=== PATIENT | male | born 1960 | race Caucasian/White ===

== ENCOUNTER 2016-12-06 07:07 | Emergency (ER) | payer BC ==
[2016-12-06 07:18] VITALS: BP 148/96
--- NOTE | 2016-12-06 07:34 | ED Physician Documentation ---
PD HPI ABD PAIN - Stated complaint Stated Complaint: SIDE PX - Chief complaint Chief Complaint: Abd Pain - History obtained from History obtained from: Patient - History of Present Illness Timing - onset: How many days ago (2) Timing - duration: Days (2) Timing - details: Abrupt onset, Still present, Waxing and waning Pain level max: 8 Pain level now: 2 Quality: Sharp, Pain Location: LUQ Radiation: Left flank Improved by: Other (nothing) Worsened by: Other (nothing) Associated symptoms: Nausea, Vomiting Similar symptoms before: Diagnosis (kidney stone) Recently seen: Emergency Dept (last night) - Additional information Additional information: 56-year-old male with his fourth episode of bilateral kidney stone has developed pain in the left side as she was traveling from [place] over to here and he stopped in the emergency department in [place] and received IV saline pain medication and improved. This morning he developed pain that was mounting and was out of Control. He was able to take his Vicodin and he made his way to the hospital he now feels his pain is somewhat under control. He is no longer nauseated but he does feel dehydrated.He has history previously of bilateral stones and has required lithotripsy once. He has urologist in [place]. Review of Systems Constitutional: denies: Fever Eyes: denies: Decreased vision Respiratory: denies: Cough GI: reports: Abdominal Pain, Nausea, Vomiting : reports: Hematuria. denies: Dysuria, Frequency Skin: denies: Rash Musculoskeletal: reports: Back pain. denies: Neck pain, Extremity pain Neurologic: denies: Generalized weakness, Focal weakness, Numbness PD PAST MEDICAL HISTORY - Present Medications Home Medications: Ambulatory Orders Medication Instructions Recorded Confirmed Hydrocodone/Acetaminophen [Vicodin 12/06/16 5-300 mg Tablet] Ondansetron Odt [Zofran] 4 mg TL Q6H PRN #10 tablet 12/06/16 - Allergies Allergies/Adverse Reactions: Allergies Allergy/AdvReac Type Severity Reaction Status Date / Time No Known Drug Allergies Allergy Verified 12/06/16 07:14 PD ED PE NORMAL - Vitals Vital signs reviewed: Yes (Hypertensive) - General General: No acute distress, Well developed/nourished - HEENT HEENT: Atraumatic, PERRL, EOMI - Neck Neck: Supple, no meningeal sign - Cardiac Cardiac: RRR, No murmur - Respiratory Respiratory: No respiratory distress, Clear bilaterally - Abdomen Abdomen: Soft, Non tender - Back Back: No CVA TTP, No spinal TTP - Derm Derm: Normal color, Warm and dry, No rash - Extremities Extremities: No deformity, No edema - Neuro Neuro: Alert and oriented X 3, No motor deficit, No sensory deficit, Normal speech - Psych Psych: Normal mood, Normal affect Results - Vitals Vitals: Vital Signs - 24 hr 12/06/16 07:12 Temperature 36.1 C L Heart Rate 70 Respiratory 16 Rate Blood Pressure 148/96 H O2 Saturation 100 Oxygen O2 Source Room air Procedures - Bedside sono Bedside sono by EMP: With the use of bedside ultrasound the left kidney is imaged and it is sonographically nontender and without evidence of hydronephrosis. - IVC sono (time) 0720 Bedside IVC sono: IVC measures (cm) (1.92), Euvolemia PD MEDICAL DECISION MAKING - ED course Complexity details: considered differential, d/w patient ED course: 56-year-old male with a kidney stone that has given him some pain this morning it was difficult to control now appears to have control of his pain he does not have any evidence of hydronephrosis on that left side and he does not appear dehydrated by interrogation of the inferior vena cava. He is reassured he does feel improved and we will provide him with some Zofran for use should he develop nausea related to the pain again. Departure - Departure Disposition: 01 Home, Self Care Clinical Impression: Ureterolithiasis Condition: Stable Instructions: ED Stone Renal W Colic Follow-Up: Your, doctor [Other] Prescriptions: Ondansetron Odt [Zofran] 4 mg TL Q6H PRN #10 tablet PRN Reason: Nausea / Vomiting
== END 2016-12-06 07:42 | disposition home or self-care (01) ==
LOC: ED 07:07
DX: N20.1 Calculus of ureter (principal); Z87.442 Personal history of urinary calculi
CPT/HCPCS: 99283

== ENCOUNTER 2020-06-18 07:55 | Emergency (ER) | payer BC ==
[2020-06-18] MEDS ORDERED: LIDOCAINE 1%-EPI 1:100000 20 ML MDV SUBQ STA (08:14)
[2020-06-18] MEDS ORDERED: TETANUS/DIPHTHERIA/PERTUSSIS 0.5 ML SYRINGE IM ONE (08:14)
--- NOTE | 2020-06-18 08:19 | ED Physician Documentation ---
History of Present Illness - Stated complaint Stated Complaint: LT LEG LAC - Chief complaint Chief Complaint: Laceration - History obtained from History obtained from: Patient - Additonal information Additional information: 60-year-old man with past medical history of kidney stones, no other history, no known drug allergies, unsure of last tetanus shot presents with left leg extensive laceration after stumbling around in the middle of the night and bumping into a wire shelf, slicing his leg open. Pain was sudden onset, mild to moderate, nonradiating, throbbing associated with laceration. Patient took pain medication prior to arrival. He is ambulatory on the leg without difficulty. Review of Systems Skin: reports: Laceration (s) Musculoskeletal: reports: Extremity pain. denies: Joint pain Neurologic: denies: Focal weakness, Numbness PD PAST MEDICAL HISTORY - Past Medical History Past Medical History: Yes : Kidney stones - Present Medications Home Medications: Ambulatory Orders Medication Instructions Recorded Confirmed cephALEXin [Keflex] 250 mg PO Q6H 5 Days #20 capsule 06/18/20 - Allergies Allergies/Adverse Reactions: Allergies Allergy/AdvReac Type Severity Reaction Status Date / Time No Known Drug Allergies Allergy Verified 06/18/20 08:03 - Social History Does the pt smoke?: No Smoking Status: Never smoker PD ED PE NORMAL - Vitals Vital signs reviewed: Yes - General General: Alert and oriented X 3, No acute distress - HEENT HEENT: Atraumatic, PERRL, EOMI - Derm Derm: Other (extensive vertical linear laceration of L anterior leg extending down to the muscle. ) - Extremities Extremities: No deformity, Normal ROM s pain Results - Vitals Vitals: Vital Signs - 24 hr 06/18/20 06/18/20 06/18/20 08:00 09:31 09:43 Temperature 36.0 C L 36.2 C L Heart Rate 64 56 L Respiratory 16 18 Rate Blood Pressure 141/80 H 158/98 H O2 Saturation 98 100 Oxygen O2 Source Room air Procedures - Laceration (location) Lower extremity left Anterior Length in cm: 10 Wound type: Linear Neurovascular status: Sensory intact, Motor intact, Vascular intact Tendon involvement: Tendon intact Anesthesia: Lidocaine 1% with epi Wound preparation: Irrigated copiously NS, Wound explored, To the base, Limited undermining, Extensive cleaning/removal of particulate matter Deep layer closure: Chromic, size #-0 - enter number (2), # sutures - enter number (3) Skin layer closure: Nylon (6 sutures. 3-0), Interrupted Other: Patient tolerated well, No complications, Neurovascular intact, Dressing applied, Tetanus booster given PD MEDICAL DECISION MAKING - ED course ED course: 60-year-old man presents with large laceration to the left lower extremity, repaired without complication. tdap given. prophylactic antibiotics prescribed. patient will follow up in surgery clinic. return precautions given. Departure - Departure Disposition: 01 Home, Self Care Clinical Impression: Laceration Condition: Good Instructions: ED Laceration Sure Close Follow-Up: Spike Milan MD [Provider Admit Priv/Credential] - Prescriptions: cephALEXin [Keflex] 250 mg PO Q6H 5 Days #20 capsule Comments: You are seen in the emergency department for leg leg laceration. Sutures were placed which should be removed in 14 to 21 days. Follow-up in surgery clinic (located near the hospital in [place]) for wound check and suture removal. Return to the ED if you have any signs of infection as we discussed or if you have severe pain or any worsening of symptoms or other concerns.
[2020-06-18 09:31] VITALS: BP 158/98
[2020-06-18] MEDS ORDERED: BACITRACIN ZINC OINT 1 PACKET TOP STA (09:56)
== END 2020-06-18 10:08 | disposition home or self-care (01) ==
LOC: ED 07:55
DX: S81.812A Laceration without foreign body, left lower leg, initial encounter (principal); S86.922A Laceration of unspecified muscle(s) and tendon(s) at lower leg level, left leg, initial encounter; W22.09XA Striking against other stationary object, initial encounter; Y93.01 Activity, walking, marching and hiking; Z23 Encounter for immunization
CPT/HCPCS: 12034; 90471; 90715; 99283; A9270